=== PATIENT | female | born 1995 ===

== ENCOUNTER 2018-12-18 03:24 | Emergency (ER) | payer SELFPAY ==
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
[2018-12-18 07:04] VITALS: BP 99/59; PULSE 80; RESP 18; TEMP 98.5
[2018-12-18 21:36] VITALS: O2SAT 97
== END 2018-12-18 07:51 | disposition home or self-care (01) ==
LOC: C.ER 03:24
DX: T76.21XA Adult sexual abuse, suspected, initial encounter (principal)